=== PATIENT | male | born 1965 | race Caucasian/White ===

== ENCOUNTER 2021-05-18 19:53 | Emergency (ER) | payer BC ==
[2021-05-18] MEDS ORDERED: Lidocaine 1% 10 ML MDV INJECT ONE (21:02)
[2021-05-18 21:15] VITALS: BP 140/98; PULSE 82
--- NOTE | 2021-05-18 22:06 | EDM.PDOC ---
ED HPI GENERAL MEDICAL PROBLEM - General Chief Complaint: Laceration Stated Complaint: CUT POINTER FINGER RIGHT HAND Time Seen by Provider: 05/18/21 20:55 Source of Information: Reports: Patient, RN Notes Reviewed History Limitations: Reports: No Limitations - History of Present Illness INITIAL COMMENTS - FREE TEXT/NARRATIVE: Patient is a 56-year-old male presenting to the emergency department with complaints of laceration to his right index finger. Reports that he was cutting janak with a tail trimmer when it bounced off the fence and cut his finger. Last tetanus vaccination was a couple months ago. Right Finger-Index Pain Score (Numeric/FACES): 8 - Related Data Allergies Allergy/AdvReac Type Severity Reaction Status Date / Time D and C blue no.2 Allergy Severe Nausea Verified 01/11/16 09:40 [blue D&C no.2] midazolam HCl [From Versed] Allergy Severe Nausea Verified 01/11/16 09:40 citalopram hydrobromide Allergy Unknown Cannot Verified 01/11/16 09:40 [From Celexa] Remember paroxetine HCl [From Paxil] Allergy Unknown Cannot Verified 01/11/16 09:40 Remember Home Meds: Home Meds Baclofen [Lioresal] 10 mg PO TID 01/11/16 [History] Hydrocodone/Acetaminophen [[place] 5-325] 1 tab PO Q6HR PRN #10 tablet 01/11/16 [Rx] Multivitamin [Multivitamins] 1 each PO DAILY 01/11/16 [History] Naproxen [Naprosyn] 500 mg PO Q12HR #20 tablet 01/11/16 [Rx] traMADol [Ultram] 50 mg PO TID PRN 01/11/16 [History] Past Medical History HEENT History: Reports: Impaired Vision Other HEENT History: astigmatism Gastrointestinal History: Reports: GERD Genitourinary History: Reports: Acute Renal Failure, Renal Calculus Other Genitourinary History: stage 3 Musculoskeletal History: Reports: Arthritis, Neck Pain, Chronic Psychiatric History: Reports: Anxiety - Infectious Disease History Infectious Disease History: Reports: Chicken Pox Social & Family History - Tobacco Use Tobacco Use Status *Q: Current Every Day Tobacco User Years of Tobacco use: 45 Packs/Tins Daily: 0.3 - Caffeine Use Caffeine Use: Reports: Coffee, Soda - Recreational Drug Use Other Recreational Drug Type: medical card ED ROS GENERAL - Review of Systems Review Of Systems: Comprehensive ROS is negative, except as noted in HPI. ED EXAM, SKIN/RASH Exam: See Below General Appearance: Alert, WD/WN, No Apparent Distress Respiratory/Chest: No Respiratory Distress, Lungs Clear, Normal Breath Sounds, No Accessory Muscle Use, Chest Non-Tender Cardiovascular: Normal Peripheral Pulses, Regular Rate, Rhythm, No Edema, No Gallop, No JVD, No Murmur, No Rub Extremities: Other (2 cm semicircular laceration to the distal aspect of the right index finger. Distal portion of finger is pink and appears to have good blood flow. Small amount of bleeding. There is laceration through the lateral half of the nail bed.) Neurological: Alert, Oriented, CN II-XII Intact, Normal Cognition, Normal Gait, Normal Reflexes, No Motor/Sensory Deficits Psychiatric: Normal Affect, Normal Mood ED SKIN PROCEDURES - Laceration/Wound Repair Right Distal Digit - 2nd (Index) Appearance: Subcutaneous, Linear Distal NVT: Neuro & Vascular Intact Anesthetic Type: Local Local Anesthesia - Lidocaine (Xylocaine): 1% Plain Local Anesthetic Volume: 1cc Skin Prep: Chlorhexidine (Hibiciens), Providone-Iodine (Betadine), Saline, Sterile Drape Exploration/Debridement/Repair: Wound Explored, In a Bloodless Field, No Foreign Material Found Closed with: Sutures, Wound Adhesive Lac/Wound length In cm: 2 Suture Size: 4-0 # of Sutures: 6 (Dermabond applied over the fingernail) Sterile Dressing Applied: Nurse Tetanus Status Addressed: Yes Complications: No Course - Vital Signs Last Recorded V/S: Last Vital Signs Temp 97.7 F 05/18/21 21:11 Pulse 82 05/18/21 21:11 Resp 20 05/18/21 21:11 BP 140/98 H 05/18/21 21:11 Pulse Ox 97 05/18/21 21:11 - Orders/Labs/Meds Meds: Medications Discontinued Medications Generic Name Dose Route Start Last Admin Trade Name Freq PRN Reason Stop Dose Admin Lidocaine HCl 10 ml 05/18/21 21:02 05/18/21 21:31 Lidocaine 1% 10 Ml Mdv INJECT 05/18/21 21:03 10 ml ONETIME ONE Administration - Re-Assessments/Exams Free Text/Narrative Re-Assessment/Exam: patient is a 56-year-old male presenting to the emergency department with complaints of laceration to the distal aspect of his right finger. He was cutting some janak with a tail trimmer when it bounced off causing a laceration to his finger. On exam, he has a 2 cm semicircular laceration to the distal aspect of the finger. Does include proximally one half of the nailbed. Wound is only mildly gaping. I have ordered x-ray of the finger as well as a lidocaine in preparation for closure. 05/18/21 22:09 X-ray of the right index finger does a very small tuft fracture of the distal aspect of the right index finger. See procedure notes for wound closure. Patient will be placed on Keflex through the [employer] [facility] machine for infection prophylaxis. Discharge instructions as documented. Departure - Departure Time of Disposition: 22:12 Disposition: Home, Self-Care 01 Condition: Good Clinical Impression: Laceration - Discharge Information *PRESCRIPTION DRUG MONITORING PROGRAM REVIEWED*: No *COPY OF PRESCRIPTION DRUG MONITORING REPORT IN PATIENT BETITO: No Instructions: Laceration Care, Adult Referrals: Jacob Fernández MD [Primary Care Provider] - Forms: ED Department Discharge Additional Instructions: You were seen in the emergency department today for a laceration to your right index finger. The wound was cleansed and closed with 6 sutures. Fingernail was closed with Dermabond glue. These should stay intact for 7-10 days. After that time they may be removed in the clinic by a nurse. There was a small fracture at the tip of the finger, therefore you have been placed on antibiotic to prevent infection. Take this as prescribed starting tonight. keep the wound clean and dry. Wash with normal soap and water twice daily. Do not submerge the wound in water. Watch for signs of infection including increased redness, swelling, or purulent drainage. If these should occur, you should be seen eithe r in the clinic or in the emergency department as antibiotic treatment may be needed. Return to the ER as needed. Sepsis Event Note (ED) - Evaluation Sepsis Screening Result: No Definite Risk
--- NOTE | 2021-05-19 07:27 | CR ---
Right second finger: 4 views right second finger were obtained. Comparison: No prior finger or hand exam is available. Minimally comminuted fracture is seen within the distal tuft of the second finger. Minimal displacement is noted. Soft tissue injury is also seen. No proximal osseous abnormality is appreciated. Impression: 1. Minimally comminuted fracture involving the distal tuft of the distal right second finger. 2. Soft tissue injury. Diagnostic code #3
== END 2021-05-18 22:30 | disposition home or self-care (01) ==
LOC: JD.ED 19:53
DX: S61.210A Laceration without foreign body of right index finger without damage to nail, initial encounter (principal); Z88.5 Allergy status to narcotic agent; Z88.8 Allergy status to other drugs, medicaments and biological substances; Z72.0 Tobacco use; W26.8XXA Contact with other sharp object(s), not elsewhere classified, initial encounter
CPT/HCPCS: 12001; 73140-26-F6; 73140-F6; 99283; 99283-25